=== PATIENT | female | born 1960 | race Two or more races ===

== ENCOUNTER 2017-02-25 19:27 | Emergency (ER) | payer BC ==
[~2017-02-25] VITALS: Ht 147.3 cm; Wt 72.6 kg
[2017-02-25] MEDS ORDERED: SYNTHROID88 MCG ORAL (19:48)
[2017-02-25] MEDS ORDERED: METFORMIN HCL500 M1 ORAL (19:48)
[2017-02-25 19:55] VITALS: BP 157/83
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
[2017-02-25] MEDS ORDERED: IBUPROFEN600 MG ORAL (20:27)
[2017-02-25] MEDS ORDERED: ROBAXIN500 MG PO (20:27)
[2017-02-25] MEDS ORDERED: LIDODERM700 M1 TOPIC (20:27)
[2017-02-25 20:41] VITALS: BP 157/83
== END 2017-02-25 20:41 | disposition home or self-care (01) ==
LOC: EMR 20:00
DX: M54.6 Pain in thoracic spine (principal); M54.5 Low back pain; M62.830 Muscle spasm of back; V49.50XA Passenger injured in collision with unspecified motor vehicles in traffic accident, initial encounter; Y92.410 Unspecified street and highway as the place of occurrence of the external cause
CPT/HCPCS: 99283

== ENCOUNTER 2019-01-15 06:42 | Emergency (ER) | payer BC ==
[~2019-01-15] VITALS: Ht 144.8 cm; Wt 72.6 kg
[~2019-01-15 06:42] MED LIST: IBUPROFEN600 MG ORAL; LIDODERM700 M1 TOPIC; METFORMIN HCL500 M1 ORAL; ROBAXIN500 MG PO; SYNTHROID88 MCG ORAL
[2019-01-15 07:02] VITALS: BP 133/90
--- NOTE | 2019-01-15 07:04 | NUR ---
ED Nurse Note: Pt aaox4, vss. with no acute distress. Pt is cooperativeand well groomed. Pt ambulated into ED c/o full body rash since 01/15/190. Pt states she took benadryl last night. Pt also c/o of rt flank pain.
--- NOTE | 2019-01-15 07:06 | NUR ---
HAND-OFF: Report given to KATHRINE Gaston.
--- NOTE | 2019-01-15 07:07 | NUR ---
ED Nurse Note: Received report from KATHRINE Huffman. Observed patient in [facility], ox4, no SOB/distress noted. Noted normal sinus rhythm on hall monitor. Rashes noted face, upper and lower extremities. Patient denies n/v/d. VSS at this time. Safety precautions in place, side rails up x2. ERMD at bedside. Will continue to monitor patient and carry out orders.
[2019-01-15] MEDS ORDERED: BENADRYL ALLERG25 M1 PO (07:21)
[2019-01-15] MEDS ORDERED: HYDROCORTISONE28 G2 TP (07:21)
[2019-01-15] MEDS ORDERED: PREDNISONE20 MG ORAL (07:21)
--- NOTE | 2019-01-15 07:25 | Emergency Room Report ---
History of Present Illness General Chief Complaint: Skin Rash/Abscess Source: Patient Present Illness HPI Disclaimer: Please note that this report is being documented using [employer] technology. This can lead to erroneous entry secondary to incorrect interpretation by the dictating instrument. HPI: 58-year-old female with a history of hypothyroidism diabetes presents for evaluation of rash. Symptoms began yesterday. Noted itching and raised welts over the arms, legs and over the chest around the neck. Resolved after taking Benadryl. Return to several hours later. Patient started using a new hand lotion yesterday and brought out some old because she has not worn in approximately 1 year including a down jackets and a scarf. States the rash started just after putting on the scarf though says she was also rubbing the hand lotion around the skin in multiple areas. Denied any shortness of breath, wheezing, stridor, vomiting, diarrhea, lightheadedness, chest pain or other symptoms. No breakdown, sloughing, purulence. Last took Benadryl approximately 1 hour ago after she awoke with itching again. Improved her symptoms again. No other history of allergies. No other members at home have similar rashes. No exposure to animals or chemicals to her knowledge. PMH: Diabetes, hypothyroidism PSH: Reviewed Allergies: Denies Social Hx: Denies Allergies: Coded Allergies: No Known Allergies (Unverified , 02/25/17) Patient History Now: No Nursing Documentation-PMH Past Medical History: No History, Except For Hx Diabetes: Yes Review of Systems All Other Systems: negative except mentioned in HPI Physical Exam Vital Signs Date Time Temp Pulse Resp B/P (MAP) Pulse Ox O2 Delivery O2 Flow Rate FiO2 01/15/19 06:54 98.1 98 14 133/90 (104) 99 Room Air General: Awake and alert, no acute distress HEENT: NC/AT. EOMI. Resp: Normal work of breathing, no wheezing, no stridor Skin: Intact, no abrasions, lacerations or abscess. Warm and well-perfused. There are flat macular erythematous regions with negative Nikolsky, no warmth, no purulence no drainage over the posterior aspects of the arms and over the lower extremities. No rash over the chest. No ulcerations. No raised lesions currently. MSK: Normal tone and bulk. Moving all extremities. No obvious deformity. Neuro: Awake and alert. Mentating appropriately Medical Decision Making Diagnostic Impression: Primary Impression: Rash Additional Impression: Allergic reaction ER Course 58-year-old female presents for evaluation of skin rash. Differential includes but is not limited to atopic dermatitis, psoriasis, eczema, allergic rash. No evidence of anaphylaxis. The patient will be treated with continued Benadryl, prednisone for several days and hydrocortisone cream. She will follow-up with her PMD next week for referral to either dermatology, after school counselor or transportation engineering technician. Discussed reasons to return to the emergency department patient and family. She understands and agrees with the treatment and will be discharged home. Last Vital Signs Date Time Temp Pulse Resp B/P (MAP) Pulse Ox O2 Delivery O2 Flow Rate FiO2 01/15/19 07:02 98.1 14 133/90 99 Room Air 01/15/19 06:54 98 Disposition: HOME, SELF-CARE Condition: Stable Scripts Diphenhydramine Hcl (BENADRYL ALLERGY) 25 Mg Tablet 25 MG PO Q6H for 3 Days, #20 TAB Prov: Duc Le MD 01/15/19 Hydrocortisone 1% Oint (Hydrocortisone 1% Oint*) Y Oint 28 GM TP TID PRN for Itching for 5 Days, #28 GM Prov: Duc Le MD 01/15/19 Prednisone* (PREDNISONE*) 20 Mg Tablet 40 MG ORAL DAILY for 3 Days, #6 TAB Prov: Duc Le MD 01/15/19 Referrals: [facility] Rodriguez. [facility] Patient Instructions: Anaphylactic Reaction Additional Instructions: You were treated for a rash today in the emergency dept. Likely this is an allergic reaction from either your clothing or new lotion. Please wash all clothing well and stop using the new lotion until we know what the trigger of this allergic reaction is. He was started on hydrocortisone cream, and prednisone for several days and continue using Benadryl 25 mg every 6 hours. If you have any difficulty breathing, wheezing, vomiting, diarrhea, worsening rash, skin breakdown, oozing or bleeding return to the emergency department for reevaluation immediately. Otherwise, follow-up with your primary doctor next week for reevaluation and possible consult with dermatology or immunology/ after school counselor to further investigate. Duc Le MD Jan 15, 2019 07:25
[2019-01-15 07:32] VITALS: BP 133/90
--- NOTE | 2019-01-15 07:32 | NUR ---
ER DISCHARGE NOTE: Patient is cleared to be discharged per ERMD, pt is aox4, on room air, with stable vital signs. pt was given dc and prescription instructions, pt was able to verbalize understanding, pt id band removed without complications. pt is able to ambulate with steady gait accompanied by spouse. pt took all belongings.
== END 2019-01-15 07:32 | disposition home or self-care (01) ==
LOC: EMR 07:29
DX: T78.49XA Other allergy, initial encounter (principal); R21 Rash and other nonspecific skin eruption; E11.9 Type 2 diabetes mellitus without complications; E03.9 Hypothyroidism, unspecified; X58.XXXA Exposure to other specified factors, initial encounter
CPT/HCPCS: 99282; J7512